=== PATIENT | female | born 1990 | race Caucasian/White ===

== ENCOUNTER 2018-02-03 22:18 | Emergency (ER) | payer OTHER ==
[~2018-02-03] VITALS: Ht 160 cm; Wt 66.2 kg
[~2018-02-03 22:18] MED LIST: NAPROXEN500 MG PO; ZOFRAN ODT4 MG SL
[2018-02-03] MEDS ORDERED: PRENATAL 19 TA1 EAC1 PO (22:41)
[2018-02-04] MEDS ORDERED: PROMETHAZINE HC25 M1 PO (00:55)
== END 2018-02-04 01:04 | disposition home or self-care (01) ==
LOC: ED 22:18
DX: O21.9 Vomiting of pregnancy, unspecified (principal); O99.331 Smoking (tobacco) complicating pregnancy, first trimester; F17.200 Nicotine dependence, unspecified, uncomplicated; Z79.899 Other long term (current) drug therapy; Z3A.13 13 weeks gestation of pregnancy
CPT/HCPCS: 81001; 96361; 96374; 99284; J2405; J7030

== ENCOUNTER 2018-08-20 16:04 | Inpatient (IN) | payer OTHER ==
[~2018-08-20] VITALS: Ht 160 cm; Wt 83.0 kg
[~2018-08-20 16:04] MED LIST changes: +PRENATAL 19 TA1 EAC1 PO; +PROMETHAZINE HC25 M1 PO
--- NOTE | 2018-08-21 17:10 | PR ---
[facility] [address] [facility] [place], [place] [address] Signed Progress Notes IP Datetime Report Generated by MOON: 08/21/2018 17:10 PROGRESS NOTES: [id number] Impression: Slow Progression of Labor Procedures: Intrauterine Pressure Catheter; Sterile Vag Exam Plan: Continue present management Informed Consent Obtain: Vaginal Delivery; Induction of Labor; Risks, Benefits and Alternatives Discussed VITAL SIGNS: [id number] Vital Signs: Reviewed; Within Normal Limits EXAM: [id number] Dilatation: 7.0 Effacement: 80 Station: -2 Uterine Contractions: q 3 to 4 min though not always picking up well MEMBRANES: [id number] Membrane Status: Intact Comments: Slow progress with more cervical edema. I suspect her contractions are inadequate. Will begin pit augment as needed. Fetus A: [id number] FHR Baseline: 130 Variability: Moderate 6-25bpm Accelerations: 15X15 Decelerations: None FHR Category: Category I Presentation: Vertex Comments on Fetus A: No evidence of metabolic acidosis Fetus B: [id number] Signing Physician: Jessica Diop MD Copies: ~ *Electronically Signed* 08/21/18 1710 JESSICA DIOP MD PATIENT NAME: VANDANA RHODES PROGRESS NOTE DATE OF : [birth year] PHYSICIAN: JESSICA DIOP MD RPT #: [id number] REPORT IS CONFIDENTIAL AND NOT TO BE RELEASED WITHOUT AUTHORIZATION
--- NOTE | 2018-08-21 18:57 | PR ---
[facility] [address] [facility] [place], [place] [address] Signed Progress Notes IP Datetime Report Generated by MOON: 08/21/2018 18:57 PROGRESS NOTES: [id number] Impression: Normal progression of labor Procedures: Sterile Vag Exam Plan: Continue present management Informed Consent Obtain: Vaginal Delivery; Induction of Labor; Risks, Benefits and Alternatives Discussed VITAL SIGNS: [id number] Vital Signs: Reviewed; Within Normal Limits EXAM: [id number] Dilatation: 9.0 Effacement: 80 Station: 0 Uterine Contractions: q 2 to 4 min MEMBRANES: [id number] Membrane Status: Intact Comments: Comfortable. Progressing but cannot push through remaining cervix yet. Fetus A: [id number] FHR Baseline: 140 Variability: Moderate 6-25bpm Accelerations: 15X15 Decelerations: Variable FHR Category: Category II Presentation: Vertex Comments on Fetus A: accels present--no evidence of metabolic acidosis Fetus B: [id number] Signing Physician: Jessica Diop MD Copies: ~ *Electronically Signed* 08/21/18 185 JESSICA DIOP MD PATIENT NAME: VANDANA RHODES [place] PROGRESS NOTE DATE OF : [birth year] PHYSICIAN: JESSICA DIOP MD RPT #: [id number] REPORT IS CONFIDENTIAL AND NOT TO BE RELEASED WITHOUT AUTHORIZATION
--- NOTE | 2018-08-22 08:38 | PR ---
[facility] [address] [facility] [place], [place] [address] Signed PP Progress Notes Datetime Report Generated by CPAmara: 08/22/2018 08:38 SUBJECTIVE: [id number] Pain: Within normal limits Nausea/Vomiting: Denies Vital Signs: [id number] Vital Signs: Reviewed Notable Details: occ HTN EXAM: [id number] Cardiovascular: Not Done Respiratory: Not Done Abdomen/Uterus: Abnormal Lochia: Normal Vulva/Perineum: Not Done Breasts: Not Done CVA Tenderness: Not Done Extremities: Normal Incision: Not Applicable Progress: Normal Exam Comments: Fundus firm, NT @ U-1 H/H 10/30.5, WBC 19.7, plat 260k IMPRESSION/PLAN/PROCEDURES: [id number] Impression: Normal progression Plan: Continue present management Progress Notes: Doing well. Will continue present regimen. Signing Physician: Jessica Diop MD Copies: ~ *Electronically Signed* 08/22/18 0838 JESSICA DIOP MD PATIENT NAME: VANDANA RHODES MISA PROGRESS NOTE DATE OF : [birth year] PHYSICIAN: JESSICA DIOP MD RPT #: [id number] REPORT IS CONFIDENTIAL AND NOT TO BE RELEASED WITHOUT AUTHORIZATION
--- NOTE | 2018-08-23 09:03 | PR ---
[facility] [address] [facility] [place], [place] [address] Signed PP Progress Notes Datetime Report Generated by CPAmara: 08/23/2018 09:03 SUBJECTIVE: [id number] Pain: Within normal limits Nausea/Vomiting: Denies Vital Signs: [id number] Vital Signs: Reviewed; Within Normal Limits Notable Details: occ HTN EXAM: [id number] Cardiovascular: Not Done Respiratory: Not Done Abdomen/Uterus: Abnormal Lochia: Normal Vulva/Perineum: Not Done Breasts: Not Done CVA Tenderness: Not Done Extremities: Normal Incision: Not Applicable Progress: Normal Exam Comments: Fundus firm, NT @ U-2. IMPRESSION/PLAN/PROCEDURES: [id number] Impression: Normal progression Plan: Discharge Procedures: None Progress Notes: Doing well. She is ready for D/C. Signing Physician: Jessica Diop MD Copies: ~ *Electronically Signed* 08/23/18 0903 JESSICA DIOP MD PATIENT NAME: VANDANA RHODES MISA PROGRESS NOTE DATE OF : 91 PHYSICIAN: JESSICA DIOP MD RPT #: [id number] REPORT IS CONFIDENTIAL AND NOT TO BE RELEASED WITHOUT AUTHORIZATION
== END 2018-08-23 14:25 | disposition home or self-care (01) | DRG 806 ==
LOC: FBC 08-21 00:10
PROVIDERS: ADMIT Obstetrics & Gynecology
PROC: 10E0XZZ Delivery of Products of Conception, External Approach (ICD-10-PCS; principal; 2018-08-21)
PROC: 0W8NXZZ Division of Female Perineum, External Approach (ICD-10-PCS; 2018-08-21)
PROC: 3E0P7VZ Introduction of Hormone into Female Reproductive, Via Natural or Artificial Opening (ICD-10-PCS; 2018-08-21)
PROC: 10907ZC Drainage of Amniotic Fluid, Therapeutic from Products of Conception, Via Natural or Artificial Opening (ICD-10-PCS; 2018-08-21)
PROC: 00HU33Z Insertion of Infusion Device into Spinal Canal, Percutaneous Approach (ICD-10-PCS; 2018-08-21)
PROC: 3E0R3BZ Introduction of Anesthetic Agent into Spinal Canal, Percutaneous Approach (ICD-10-PCS; 2018-08-21)
DX: O48.0 Post-term pregnancy (principal); O99.324 Drug use complicating childbirth; Z37.0 Single live birth; Z3A.40 40 weeks gestation of pregnancy; O76 Abnormality in fetal heart rate and rhythm complicating labor and delivery; O77.0 Labor and delivery complicated by meconium in amniotic fluid; O34.43 Maternal care for other abnormalities of cervix, third trimester; N84.1 Polyp of cervix uteri; F12.90 Cannabis use, unspecified, uncomplicated; Z88.6 Allergy status to analgesic agent
CPT/HCPCS: 01960; 36415; 82803; 85027; J2590; J2795; J7120

== ENCOUNTER 2022-05-03 14:39 | Emergency (ER) | payer OTHER ==
[~2022-05-03] VITALS: Ht 154.9 cm; Wt 74.1 kg
== END 2022-05-03 19:00 | disposition home or self-care (01) ==
LOC: ED 14:39
DX: O20.0 Threatened abortion (principal); O99.891 Other specified diseases and conditions complicating pregnancy; R10.2 Pelvic and perineal pain; O26.851 Spotting complicating pregnancy, first trimester; Z87.891 Personal history of nicotine dependence; Z88.6 Allergy status to analgesic agent; Z3A.08 8 weeks gestation of pregnancy
CPT/HCPCS: 36415; 76802; 76817; 80053; 81003; 83690; 84702; 84703; 85025; 99284-25

== ENCOUNTER 2022-12-07 08:43 | Inpatient (IN) | payer OTHER ==
[~2022-12-07] VITALS: Ht 154.9 cm; Wt 83.9 kg
--- OUTSIDE RECORDS SUMMARY | ~2022-12-07 | XMS | Continuity of Care Document ---
Demographics + + + | Address | [address] | | | [place] [address] | + + + | Preferred Language | Unknown | + + + | Marital Status | Never | + + + | Mandaeism Affiliation | Unknown | + + + | Race | White | + + + | Ethnic Group | Not or | + + + Author + + + | Author | [place] | + + + | Organization | [facility] | + + + | Address | [address] | | | [place] [address] | + + + | Phone | | + + + Care Team Providers + + + + | Care Samples And Repairs Preparer Name | Role | Phone | + + + + Unavailable | Unavailable | + + + + Unavailable | Unavailable | + + + + Unavailable | Unavailable | + + + + Allergies and Intolerances + + + + + + | date | description | facility | reaction | severity | + + + + + + | (no date) | Urticaria | [facility] | (no reaction) | (no severity) | [facility] | | | + + + + + + | (no date) | Acetaminophen | [facility] | (no reaction) | (no severity) | | [facility] | | | + + + + + + | (no date) | acetaminophen | [facility] | (no reaction) | (no severity) | | [facility] | | | + + + + + + | (no date) | Acetaminophen | [facility] | (no reaction) | (no severity) | | [facility] | | | + + + + + + | (no date) | Acetaminophen | [facility] | (no reaction) | (no severity) | | [facility] | | | + + + + + + | (no date) | acetaminophen | [facility] | (no reaction) | (no severity) | + + + + + + Encounters No information. Functional Status No information. Immunizations No information. Medications + + + + | date | description | facility | + + + + | 2012-11-10 00:00 | NAPROXEN | [facility] | + + + + | 2012-11-10 00:00 | NAPROXEN | [facility] | + + + + | 2018-02-04 00:00 | PROMETHAZINE HCL | [facility] | + + + + | 2018-02-04 00:00 | PROMETHAZINE HCL | [facility] | + + + + Problems + + + + | date | description | facility | + + + + | 2018-02-04 00:00 | Vomiting affecting | [facility] | | | | | + + + + | 2018-02-04 00:00 | Vomiting affecting | [facility] | | | | | + + + + | 2021-10-22 00:00 | Patient left without being | [facility] | | | seen | | + + + + | 2021-10-22 00:00 | Patient left without being | [facility] | | | seen | | + + + + | 2022-05-03 00:00 | Threatened | [facility] | + + + + | 2022-05-03 00:00 | Pain in pelvis | [facility] | + + + + | 2022-05-03 00:00 | Intrauterine | [facility] | + + + + | 2022-05-03 14:39 | THREATENED | [facility] | + + + + | 2022-05-03 14:39 | SPOTTING COMPLICATING | [facility] | | | , FIRST TRIMESTER | | + + + + | 2022-05-03 14:39 | PELVIC AND PERINEAL PAIN | [facility] | + + + + | 2022-05-03 14:39 | RIGHT LOWER QUADRANT PAIN | [facility] | + + + + | 2022-05-03 14:39 | 8 WEEKS GESTATION OF | [facility] | | | | | + + + + | 2022-05-03 14:39 | PERSONAL HISTORY OF | [facility] | | | NICOTINE DEPENDENCE | | + + + + | 2022-05-03 14:39 | ALLERGY STATUS TO | [facility] | | | ANALGESIC AGENT STATUS | | + + + + | 2022-07-25 11:51 | ENCOUNTER FOR SUPRVSN OF | [facility] | | | NORMAL , SECOND | | | | TRIMESTER | | + + + + | 2022-10-24 09:01 | JUSTIN/LUCIEN/OVIDIO CONSEQ OF | [facility] | | | EXTERNAL CAUSES COMP PREG, | | | | THIRD TRI | | + + + + | 2022-10-24 09:01 | 33 WEEKS GESTATION OF | [facility] | | | | | + + + + Procedures No information. Results/Labs +--------+--------+ +---------+--------+---------+ | test | date | facility | value | unit | notes | +--------+--------+ +---------+--------+---------+ + + | Result panel 1 | + + + + + +-------+ + + | | 2022-05-03 | [facility] | 6.5 | (missing) | (missing) | | (unavailable | 15:05:08 [facility] | | | | + + + +-------+ + + + + | Result panel 2 | + + + + + +--------+ + + | | 2022-05-03 | [facility] | 54.9 | (missing) | (missing) | | (unavailable | [facility]:05:08 [facility] | | | | + + + +--------+ + + + + | Result panel 3 | + + + + + +--------+ + + | | 2022-05-03 | [facility] | 36.3 | (missing) | (missing) | | (unavailable | [facility]:05:08 [facility] | | | | + + + +--------+ + + + + | Result panel 4 | + + + + + +-------+ + + | | 2022-05-03 | [facility] | 8.0 | (missing) | (missing) | | (unavailable | [facility]05:08 [facility] | | | | + + + +-------+ + + + + | Result panel 5 | + + + + + +-------+ + + | | 2022-05-03 | [facility] | 0.4 | (missing) | (missing) | | (unavailable | 15::08 [facility] | | | | + + + +-------+ + + + + | Result panel 6 | + + + + + +-------+ + + | | 2022-05-03 | [facility] | 0.4 | (missing) | (missing) | | (unavailable | [facility]:05:08 [facility] | | | | + + + +-------+ + + + + | Result panel 7 | + + + + + +--------+ + + | | 2022-05-03 | [facility] | 4.54 | (missing) | (missing) | | (unavailable | [facility]:05:08 [facility] | | | | + + + +--------+ + + + + | Result panel 8 | + + + + + +------+---------+ + | | 2022-05-03 | [facility] | 79 | mg/dL | (missing) | | (unavailable | [facility]:05:08 [facility] | | | | + + + +------+---------+ + + + | Result panel 9 | + + + + + +-----+---------+ + | | 2022-05-03 | [facility] | 9 | mg/dL | (missing) | | (unavailable | [facility]:05:08 [facility] | | | | + + + +-----+---------+ + + + | Result panel 10 | + + + + + +--------+---------+ + | | 2022-05-03 | [facility] | 0.74 | mg/dL | (missing) | | (unavailable | [facility]:05:08 [facility] | | | | + + + +--------+---------+ + + + | Result panel 11 | + + + + + +--------+ + + | | 2022-05-03 | [facility] | 13.9 | (missing) | (missing) | | (unavailable | [facility]:05:08 [facility] | | | | + + + +--------+ + + + + | Result panel 12 | + + + + + +-------+ + + | | 2022-05-03 | [facility] | 112 | (missing) | (missing) | | (unavailable | [facility]05:08 [facility] | | | + + + +-------+ + + + + | Result panel 13 | + + + + + +---------+ + + | | 2022-05-03 | [facility] | 12.16 | (missing) | (missing) | | (unavailable | [facility]05:08 [facility] | | | | + + + +---------+ + + + + | Result panel 14 | + + + + + +-------+ + + | | 2022-05-03 | [facility] | 136 | (missing) | (missing) | | (unavailable | [facility]:05:08 [facility] | | | + + + +-------+ + + + + | Result panel 15 | + + + + + +-------+ + + | | 2022-05-03 | [facility] | 3.3 | (missing) | (missing) | | (unavailable | [facility]:05:08 [facility] | | | | + + + +-------+ + + + + | Result panel 16 | + + + + + +------+ + + | | 2022-05-03 | [facility] | 99 | (missing) | (missing) | | (unavailable | [facility]:05:08 [facility] | | | | + + + +------+ + + + + | Result panel 17 | + + + + + +------+ + + | | 2022-05-03 | [facility] | 27 | (missing) | (missing) | | (unavailable | [facility]05:08 [facility] | | | | + + + +------+ + + + + | Result panel 18 | + + + + + +--------+ + + | | 2022-05-03 | [facility] | 13.3 | (missing) | (missing) | | (unavailable | [facility]:05:08 [facility] | | | | + + + +--------+ + + + + | Result panel 19 | + + + + + +-------+---------+ + | | 2022-05-03 | [facility] | 8.9 | mg/dL | (missing) | | (unavailable | [facility]05:08 [facility] | | | | + + + +-------+---------+ + + + | Result panel 20 | + + + + + +-------+ + + | | 2022-05-03 | [facility] | 7.8 | (missing) | (missing) | | (unavailable | [facility]:05:08 [facility] | | | | + + + +-------+ + + + + | Result panel 21 | + + + + + +-------+ + + | | 2022-05-03 | [facility] | 3.7 | (missing) | (missing) | | (unavailable | [facility]:05:08 [facility] | | | | + + + +-------+ + + + + | Result panel 22 | + + + + + +--------+ + + | | 2022-05-03 | [facility] | 40.7 | (missing) | (missing) | | (unavailable | [facility]05:08 [facility] | | | | + + + +--------+ + + + + | Result panel 23 | + + + + + +-------+ + + | | 2022-05-03 | [facility] | 4.1 | (missing) | (missing) | | (unavailable | 15::08 [facility] | | | + + + +-------+ + + + + | Result panel 24 | + + + + + +--------+ + + | | 2022-05-03 | [facility] | 0.90 | (missing) | (missing) | | (unavailable | [facility]05:08 [facility] | | | + + + +--------+ + + + + | Result panel 25 | + + + + + +-------+ + + | | 2022-05-03 | [facility] | 0.5 | (missing) | (missing) | | (unavailable | 15:05:08 [facility] | | | | + + + +-------+ + + + + | Result panel 26 | + + + + + +------+ + + | | 2022-05-03 | [facility] | 19 | (missing) | (missing) | | (unavailable | [facility]05:08 [facility] | | | | + + + +------+ + + + + | Result panel 27 | + + + + + +------+ + + | | 2022-05-03 | [facility] | 28 | (missing) | (missing) | | (unavailable | [facility]05:08 [facility] | | | | + + + +------+ + + + + | Result panel 28 | + + + + + +------+ + + | | 2022-05-03 | [facility] | 65 | (missing) | (missing) | | (unavailable | [facility]:05:08 [facility] | | | | + + + +------+ + + + + | Result panel 29 | + + + + + +------+ + + | | 2022-05-03 | [facility] | 50 | (missing) | (missing) | | (unavailable | [facility]05:08 [facility] | | | | + + + +------+ + + + + | Result panel 30 | + + + + + + + + + | | 2022-05-03 | [facility] | POSITIVE | (missing) | (missing) | | (unavailable | [facility]:05:08 [facility] | | | | + + + + + + + + + | Result panel 31 | + + + + + +--------+ + + | | 2022-05-03 | [facility] | 89.7 | (missing) | (missing) | | (unavailable | [facility]:05:08 [facility] | | | | + + + +--------+ + + + + | Result panel 32 | + + + + + +--------+ + + | | 2022-05-03 | [facility] | 30.6 | (missing) | (missing) | | (unavailable | [facility]:05:08 [facility] | | | | + + + +--------+ + + + + | Result panel 33 | + + + + + +--------+ + + | | 2022-05-03 | [facility] | 34.1 | (missing) | (missing) | | (unavailable | [facility]05:08 [facility] | | | | + + + +--------+ + + + + | Result panel 34 | + + + + + +--------+ + + | | 2022-05-03 | [facility] | 13.1 | (missing) | (missing) | | (unavailable | [facility]05:08 [facility] | | | | + + + +--------+ + + + + | Result panel 35 | + + + + + +-------+ + + | | 2022-05-03 | [facility] | 269 | (missing) | (missing) | | (unavailable | [facility]:05:08 [facility] | | | | + + + +-------+ + + + + | Result panel 36 | + + + + + +---------+ + + | | 2022-05-03 | [facility] | [id number] | (missing) | (missing) | | (unavailable | 15:08:08 [facility] | | | | + + + +---------+ + + + + | Result panel 37 | + + + + + + + + + | | 2022-05-03 | [facility] | YELLOW | (missing) | (missing) | | (unavailable | 15:45:08 [facility] | | | | + + + + + + + + + | Result panel 38 | + + + + + + + + + | | 2022-05-03 | [facility] | SL CLOUDY | (missing) | (missing) | | (unavailable | [facility]:45:08 [facility] | | | | + + + + + + + + + | Result panel 39 | + + + + + + + + + | | 2022-05-03 | [facility] | NEGATIVE | (missing) | (missing) | | (unavailable | [facility]:45:08 [facility] | | | | + + + + + + + + + | Result panel 40 | + + + + + + + + + | | 2022-05-03 | [facility] | NEGATIVE | (missing) | (missing) | | (unavailable | [facility]45:08 [facility] | | | | + + + + + + + + + | Result panel 41 | + + + + + +---------+ + + | | 2022-05-03 | [facility] | TRACE | (missing) | (missing) | | (unavailable | [facility]:45:08 [facility] | | | | + + + +---------+ + + + + | Result panel 42 | + + + + + +---------+ + + | | 2022-05-03 | [facility] | 1.025 | (missing) | (missing) | | (unavailable | [facility]:45:08 [facility] | | | | + + + +---------+ + + + + | Result panel 43 | + + + + + + + + + | | 2022-05-03 | [facility] | NEGATIVE | (missing) | (missing) | | (unavailable | [facility]:45:08 [facility] | | | | + + + + + + + + + | Result panel 44 | + + + + + +-------+ + + | | 2022-05-03 | [facility] | 6.0 | (missing) | (missing) | | (unavailable | [facility]:45:08 [facility] | | | | + + + +-------+ + + + + | Result panel 45 | + + + + + + + + + | | 2022-05-03 | [facility] | NEGATIVE | (missing) | (missing) | | (unavailable | [facility]:45:08 [facility] | | | | + + + + + + + + + | Result panel 46 | + + + + + + + + + | | 2022-05-03 | [facility] | NORMAL | (missing) | (missing) | | (unavailable | [facility]:45:08 [facility] | | | | + + + + + + + + + | Result panel 47 | + + + + + + + + + | | 2022-05-03 | [facility] | NEGATIVE | (missing) | (missing) | | (unavailable | [facility]:45:08 [facility] | | | | + + + + + + + + + | Result panel 48 | + + + + + + + + + | | 2022-05-03 | [facility] | NEGATIVE | (missing) | (missing) | | (unavailable | [facility]:45:08 [facility] | | | | + + + + + + + Social History No information. Vital Signs + + + +---------+ | date | measurement | value | units | + + + +---------+ | 2021-10-22 00:00 | BMI | 30.2 | kg/m2 | + + + +---------+ | 2021-10-22 00:00 | BP_diastolic | 91 | mmHg | + + + +---------+ | 2021-10-22 00:00 | BP_systolic | 124 | mmHg | + + + +---------+ | 2021-10-22 00:00 | heart_rate | 81 | /min | + + + +---------+ | 2021-10-22 00:00 | height_metric | 160.02 | cm | + + + +---------+ | 2021-10-22 00:00 | height_standard | 63 | in | + + + +---------+ | 2021-10-22 00:00 | o2_saturation | 98 | % | + + + +---------+ | 2021-10-22 00:00 | respiration_rate | 16 | /min | + + + +---------+ | 2021-10-22 00:00 | temperature_metric | 36.94 | C | | | | | | + + + +---------+ | 2021-10-22 00:00 | | 98.5 | F | | | temperature_standar | | | | | d | | | + + + +---------+ | 2021-10-22 00:00 | weight_metric | 77.3 | kg | + + + +---------+ | 2021-10-22 00:00 | weight_standard | 170.42 | lb | + + + +---------+ | 2022-05-03 00:00 | BMI | 30.9 | kg/m2 | + + + +---------+ | 2022-05-03 00:00 | BP_diastolic | 78 | mmHg | + + + +---------+ | 2022-05-03 00:00 | BP_systolic | 120 | mmHg | + + + +---------+ | 2022-05-03 00:00 | heart_rate | 78 | /min | + + + +---------+ | 2022-05-03 00:00 | height_metric | 154.94 | cm | + + + +---------+ | 2022-05-03 00:00 | height_standard | 61 | in | + + + +---------+ | 2022-05-03 00:00 | o2_saturation | 98 | % | + + + +---------+ | 2022-05-03 00:00 | respiration_rate | 17 | /min | + + + +---------+ | 2022-05-03 00:00 | temperature_metric | 37 | C | | | | | | + + + +---------+ | 2022-05-03 00:00 | | 98.6 | F | | | temperature_standar | | | | | d | | | + + + +---------+ | 2022-05-03 00:00 | weight_metric | 74.11 | kg | + + + +---------+ | 2022-05-03 00:00 | weight_standard | 163.38 | lb | + + + +---------+"
[2022-12-07 09:16] LABS: HEMATOCRIT 36.2 % (35.0-50.0); HEMOGLOBIN 12.5 g/dL (12.0-18.0); MCH 31.7 (27-36); MCHC 34.4 g/dl (30-36); MCV 92.2 fl (81-99); RBC 3.93 M/ul (4.3-5.7); RDW 13.5 (10.5-15.0)
[2022-12-07 09:19] VITALS: BP 109/61
[2022-12-07 09:20] LABS: AMPHETAMINES, UR NEGATIVE (NEGATIVE); BARBITURATES, UR NEGATIVE (NEGATIVE); BENZODIAZEPINES, UR NEGATIVE (NEGATIVE); BUPRENORPHINE,UR NEGATIVE (NEGATIVE); COCAINE, UR NEGATIVE (NEGATIVE); MARIJUANA (THC), UR POSITIVE (NEGATIVE); MDMA, UR NEGATIVE (NEGATIVE); METHADONE, UR NEGATIVE (NEGATIVE); METHAMPHETAMINE, UR NEGATIVE (NEGATIVE); OPIATES, UR NEGATIVE (NEGATIVE); OXYCODONE, UR NEGATIVE (NEGATIVE); PHENCYCLIDINE, UR NEGATIVE (NEGATIVE); TRICYCLIC ANTIDEPRESSANT, UR NEGATIVE (NEGATIVE)
[2022-12-07 09:50] LABS: ABO A; ANTIBODY SCREEN NEGATIVE; RH POSITIVE
[2022-12-07 10:32] VITALS: BP 109/61
--- NOTE | 2022-12-07 12:42 | PR ---
[facility] [address] [facility] [place], [place] [address] Signed Progress Notes IP Datetime Report Generated by CPAmara: 12/07/2022 12:42 PROGRESS NOTES: [id number] Impression: Normal Progression of Labor Procedures: Artificial ROM; Sterile Vag Exam Plan: Continue Present Management VITAL SIGNS: A4286348 Vital Signs: Reviewed; Within Normal Limits EXAM: [id number] Dilatation: 4.0 Effacement: 70 Station: -2 Contractions: occ MEMBRANES: [id number] Comments: Feeling more contractions. Will continue. FETUS A: [id number] FHR Baseline: 125 Variability: Minimal - >Undetectable to <=5bpm Accelerations: 15X15 Decelerations: None FHR Category: Category II Presentation: Vertex FETUS B: [id number] Signing Physician: Jessica Diop MD Copies: ~ *Electronically Signed* 12/07/22 1242 JESSICA DIOP MD PATIENT NAME: VANDANA RHODES PROGRESS NOTE DATE OF : [birth year] PHYSICIAN: JESSICA DIOP MD RPT #: [id number] REPORT IS CONFIDENTIAL AND NOT TO BE RELEASED WITHOUT AUTHORIZATION
--- NOTE | 2022-12-07 17:24 | PR ---
[facility] [place] [facility] [address] [facility] [place], [place] [address] Signed Progress Notes IP Datetime Report Generated by CPN: 12/07/2022 17:24 PROGRESS NOTES: [id number] Impression: Reassuring Heart Rate Procedures: Intrauterine Pressure Catheter; Sterile Vag Exam Plan: Augmentation VITAL SIGNS: [id number] Vital Signs: Reviewed; Within Normal Limits EXAM: V2010730 Dilatation: 5.0 Effacement: 70 Station: -2 Contractions: occ MEMBRANES: C7500168 Comments: Minimal progress since AROM. Contraction pattern appears inadequate. Will begin low dose pitocin with IUPC. FETUS A: [id number] FHR Baseline: 125 Variability: Minimal - >Undetectable to <=5bpm Accelerations: 15X15 Decelerations: None FHR Category: Category II Presentation: Vertex FETUS B: [id number] Signing Physician: Jessica Diop MD Copies: ~ *Electronically Signed* 12/07/22 1724 JESSICA DIOP MD PATIENT NAME: VANDANA RHODES MISA PROGRESS NOTE DATE OF : 91 PHYSICIAN: JESSICA DIOP MD RPT #: [id number] REPORT IS CONFIDENTIAL AND NOT TO BE RELEASED WITHOUT AUTHORIZATION
--- NOTE | 2022-12-07 19:34 | PR ---
[facility] [address] [facility] [place], [place] [address] Signed Progress Notes IP Datetime Report Generated by CPN: 12/07/2022 19:34 PROGRESS NOTES: [id number] Impression: Reassuring Heart Rate Procedures: Scalp Electrode; Sterile Vag Exam Plan: Continue Present Management VITAL SIGNS: S9748294 Vital Signs: Reviewed; Within Normal Limits EXAM: [id number] Dilatation: 5.0 Effacement: 80 Station: -2 Contractions: occ MEMBRANES: [id number] Comments: Getting more uncomfortable but not much change. Will continue to increase pit as needed. FETUS A: [id number] FHR Baseline: 125 Variability: Minimal - >Undetectable to <=5bpm Accelerations: 15X15 Decelerations: None FHR Category: Category II Presentation: Vertex FETUS B: [id number] Signing Physician: Jessica Diop MD Copies: ~ *Electronically Signed* 12/07/221933 JESSICA DIOP MD PATIENT NAME: VANDANA RHODES MISA PROGRESS NOTE DATE OF : [birth year] PHYSICIAN: JESSICA DIOP MD RPT #: [id number] REPORT IS CONFIDENTIAL AND NOT TO BE RELEASED WITHOUT AUTHORIZATION
--- NOTE | 2022-12-07 20:41 | PR ---
[facility] [address] [facility] [place], [place] [address] Signed Progress Notes IP Datetime Report Generated by MOON: 12/07/2022 20:40 PROGRESS NOTES: [id number] Impression: Normal Progression of Labor; Reassuring Heart Rate Procedures: Sterile Vag Exam; Epidural Placement Plan: Continue Present Management VITAL SIGNS: [id number] Vital Signs: Reviewed; Within Normal Limits EXAM: [id number] Dilatation: 7.0 Effacement: 90 Station: -2 Contractions: occ MEMBRANES: [id number] Comments: Uncomfortable and progressing well. Will proceed with epidural. FETUS A: [id number] FHR Baseline: 125 Variability: Minimal - >Undetectable to <=5bpm Accelerations: 15X15 Decelerations: None FHR Category: Category II Presentation: Vertex FETUS B: [id number] Signing Physician: Jessica Diop MD Copies: ~ *Electronically Signed* 12/07/222039 JESSICA DIOP MD PATIENT NAME: VANDANA RHODES MISA PROGRESS NOTE DATE OF : [birth year] PHYSICIAN: JESSICA DIOP MD RPT #: [id number] REPORT IS CONFIDENTIAL AND NOT TO BE RELEASED WITHOUT AUTHORIZATION
[2022-12-08 05:29] LABS: HEMATOCRIT 33.4 % (35.0-50.0); HEMOGLOBIN 11.4 g/dL (12.0-18.0); MCH 31.6 (27-36); MCHC 34.2 g/dl (30-36); MCV 92.5 fl (81-99); RBC 3.61 M/ul (4.3-5.7); RDW 13.6 (10.5-15.0)
--- NOTE | 2022-12-08 08:22 | PR ---
[facility] [address] [facility] [place] [address] Signed PP Progress Notes Datetime Report Generated by CPAmara: 12/08/2022 08:22 SUBJECTIVE: [id number] Pain: Within Normal Limits Vital Signs: [id number] Vital Signs: Reviewed; Within Normal Limits EXAM: Ongoing Cardiovascular: Not Done Respiratory: Not Done Abdomen/Uterus: Abnormal Lochia: Normal Vulva/Perineum: Not Done Breasts: Not Done CVA Tenderness: Not Done Extremities: Normal Incision: Not Applicable Progress: Abnormal Exam Comments: Fundus firm, NT @ U-2. H/H 11.4/33.4, WBC 17.1, plat 256k IMPRESSION/PLAN/PROCEDURES: [id number] Impression: Normal Progression Plan: Consult Procedures: None Progress Notes: Doing well. Will continue present management. Signing Physician: Jessica Diop MD Copies: ~ *Electronically Signed* 12/08/22821 JESSICA DIOP MD PATIENT NAME: VANDANA RHODES MISA PROGRESS NOTE DATE OF : 89 PHYSICIAN: JESSICA DIOP MD RPT #: [id number] REPORT IS CONFIDENTIAL AND NOT TO BE RELEASED WITHOUT AUTHORIZATION
--- NOTE | 2022-12-08 11:20 | NUR ---
EXERCISED MINISTRY OF PRESENCE MOM TALKED OF FAMILY LIFE. MOM CONSENTED TO PRAYER. PRAYED FOR GOOD BEGINNINGS AND ONGOING BLESSING.
--- NOTE | 2022-12-09 07:12 | PR ---
[facility] [address] [facility] [place], [place] [address] Signed PP Progress Notes Datetime Report Generated by CPN: 12/09/2022 07:12 SUBJECTIVE: [id number] Pain: Within Normal Limits Vital Signs: [id number] Vital Signs: Reviewed; Within Normal Limits EXAM: Ongoing Cardiovascular: Not Done Respiratory: Not Done Abdomen/Uterus: Abnormal Lochia: Normal Vulva/Perineum: Not Done Breasts: Not Done CVA Tenderness: Not Done Extremities: Normal Incision: Not Applicable Progress: Normal Exam Comments: Fundus firm, NT @ U-2. IMPRESSION/PLAN/PROCEDURES: [id number] Impression: Normal Progression Plan: Discharge Procedures: None Progress Notes: Doing well. She is ready for D/C. Signing Physician: Jessica Diop MD Copies: ~ *Electronically Signed* 12/09/22711 JESSICA DIOP MD PATIENT NAME: VANDANA RHODES PROGRESS NOTE DATE OF : 89 PHYSICIAN: JESSICA DIOP MD RPT #: [id number] REPORT IS CONFIDENTIAL AND NOT TO BE RELEASED WITHOUT AUTHORIZATION
== END 2022-12-09 10:40 | disposition home or self-care (01) | DRG 806 ==
LOC: FBC 08:43
PROVIDERS: ADMIT Obstetrics & Gynecology; ATTEND Obstetrics & Gynecology
PROC: 10E0XZZ Delivery of Products of Conception, External Approach (ICD-10-PCS; principal; 2022-12-07)
PROC: 10907ZC Drainage of Amniotic Fluid, Therapeutic from Products of Conception, Via Natural or Artificial Opening (ICD-10-PCS; 2022-12-07)
PROC: 10H07YZ Insertion of Other Device into Products of Conception, Via Natural or Artificial Opening (ICD-10-PCS; 2022-12-07)
PROC: 4A1HXCZ Monitoring of Products of Conception, Cardiac Rate, External Approach (ICD-10-PCS; 2022-12-07)
PROC: 00HU33Z Insertion of Infusion Device into Spinal Canal, Percutaneous Approach (ICD-10-PCS; 2022-12-07)
PROC: 3E0R3BZ Introduction of Anesthetic Agent into Spinal Canal, Percutaneous Approach (ICD-10-PCS; 2022-12-07)
PROC: 3E0P7VZ Introduction of Hormone into Female Reproductive, Via Natural or Artificial Opening (ICD-10-PCS; 2022-12-07)
PROC: 0UQG7ZZ Repair Vagina, Via Natural or Artificial Opening (ICD-10-PCS; 2022-12-07)
DX: O76 Abnormality in fetal heart rate and rhythm complicating labor and delivery (principal); O99.324 Drug use complicating childbirth; Z37.0 Single live birth; O70.1 Second degree perineal laceration during delivery; F12.90 Cannabis use, unspecified, uncomplicated; Z67.10 Type A blood, Rh positive; Z3A.39 39 weeks gestation of pregnancy
CPT/HCPCS: 01960; 36415; 85027; 86850; 86900; 86901; A9270; J2590; J2795